=== PATIENT | male | born 1985 | race Caucasian/White ===

== ENCOUNTER 2019-02-03 22:42 | Emergency (ER) | payer SELFPAY ==
[~2019-02-03] VITALS: Ht 180.3 cm; Wt 127.5 kg
--- NOTE | 2019-02-03 22:57 | NUR ---
PT BIBSELF C/O CHEST PAIN, NON-RADIATING. PT SAYS HAVING SOB. PT HAS HX OF ANXIETY. PT AXO4. RESPIRATIONS EVEN AND UNLABORED. PT SPEAKING IN FULL SENTENCES. 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
--- NOTE | 2019-02-03 23:02 | NUR ---
VAIBHAV VASQUEZ AT BEDSIDE.
[2019-02-03] MEDS ORDERED: LORAZEPAM 1 MG TABLET ONE (23:14)
--- NOTE | 2019-02-03 23:15 | NUR ---
EKG AT BEDSIDE.
[2019-02-03 23:23] VITALS: BP 156/91
[2019-02-03] MEDS ORDERED: LORAZEPAM 1 MG TABLET PO ONE (23:30)
--- NOTE | 2019-02-03 23:42 | NUR ---
Patient discharged to home in stable condition. Written and verbal after care instructions given. Patient verbalizes understanding of instruction.
== END 2019-02-03 23:43 | disposition home or self-care (01) ==
LOC: ER 22:56
DX: F41.0 Panic disorder [episodic paroxysmal anxiety] (principal)

== ENCOUNTER 2019-02-22 18:47 | Emergency (ER) | payer SELFPAY ==
[~2019-02-22] VITALS: Ht 180.3 cm; Wt 131.5 kg
--- NOTE | 2019-02-22 19:36 | NUR ---
BIBS FOR C/O GEN BODY ACHES , LOWER ABD AND BILATERAL LOWER BACK PAIN FFOR THE PAST FEW DAYS. - H/A, -N/V, - SOB, -DYSURIA.
[2019-02-22] MEDS ORDERED: ONDANSETRON HCL/PF 4 MG/2 ML VIAL ONE (19:56)
[2019-02-22] MEDS ORDERED: KETOROLAC TROMETHAMINE INJ 30 MG/ML VIAL ONE (19:56)
[2019-02-22] MEDS ORDERED: ONDANSETRON HCL/PF 4 MG/2 ML VIAL IVP ONE (20:00)
[2019-02-22] MEDS ORDERED: IV NS 0.9% 1,000 ML BAG IV ONE (20:00)
[2019-02-22] MEDS ORDERED: KETOROLAC TROMETHAMINE INJ 30 MG/ML VIAL IV ONE (20:00)
[2019-02-22 20:09] LABS: BASOPHILS % (AUTO) 0.4 % (0.0-2.0); EOSINOPHILS % (AUTO) 0.5 % (0.0-6.0); HEMATOCRIT 48 % (39-51); HEMOGLOBIN 16.8 g/dL (13.5-17.5); LYMPHOCYTES % (AUTO) 12.8 % (20.0-44.0); MEAN CORPUSCULAR HGB CONC 35 g/dl (31.0-36.0); MEAN CORPUSCULAR VOLUME 91 fL (80-96); MONOCYTES # (AUTO) 0.3 /CMM (0.1-1.30); MONOCYTES % (AUTO) 4.2 % (2.0-12.0); NEUTROPHILS # (AUTO) 6.2 /CMM (1.8-8.9); NEUTROPHILS % (AUTO) 82.1 % (43.0-81.0); PLATELET COUNT (AUTO) 136 /CMM (150-450); WHITE BLOOD COUNT (AUTO) 7.6 K/uL (4.3-11.0)
[2019-02-22] MEDS ORDERED: ACETAMINOPHEN ES 500 MG TABLET ONE (20:13)
[2019-02-22 20:23] LABS: CREATININE 1.1 mg/dL (0.6-1.3); POTASSIUM 4.2 mmol/L (3.5-5.1)
[2019-02-22 20:24] LABS: APPEARANCE,URINE Clear (CLEAR); BILIRUBIN,URINE Negative (NEGATIVE); BLOOD, URINE Negative Ery/uL (NEGATIVE); COLOR,URINE Yellow (YELLOW); KETONES,URINE Trace (NEGATIVE); LEUKOCYTE ESTERASE ,URINE Negative (NEGATIVE); NITRITE, URINE Negative (NEGATIVE); PROTEIN,URINE Negative (NEGATIVE); UGLUCOSE Negative (NEGATIVE); UROBILINOGEN,URINE 0.2 EU/dL (0.2)
[2019-02-22 20:29] LABS: ALBUMIN 4.3 g/dL (3.4-5.0); BILIRUBIN,DIRECT 0.2 mg/dL (0.0-0.2); BILIRUBIN,TOTAL 0.7 mg/dL (0.2-1.0); TOTAL PROTEIN, SERUM 8.4 g/dL (6.4-8.2)
[2019-02-22] MEDS ORDERED: ACETAMINOPHEN 325 MG TABLET PO ONE (20:30)
[2019-02-22 20:47] LABS: BACTERIA,URINE None seen /HPF (None Seen); RBC,URINE 0-2 /HPF (0-2); SQUAMOUS EPITHELIAL CELL,UR Few /HPF (None Seen); WBC,URINE 0-2 /HPF (0-3)
--- NOTE | 2019-02-22 21:10 | NUR ---
LEFT FOR CT
--- NOTE | 2019-02-22 21:18 | NUR ---
BACK FROM CT
[2019-02-22] MEDS ORDERED: MORPHINE SULFATE INJ 4 MG/ML DISP.SYRIN ONE (21:26)
[2019-02-22] MEDS ORDERED: MORPHINE SULFATE INJ 2 MG/ML DISP.SYRIN IV ONE (21:30)
--- NOTE | 2019-02-22 22:21 | NUR ---
Patient discharged to home in stable condition. Rx and Written and verbal after care instructions given. Patient verbalizes understanding of instruction. pt was picked up by [email or web address] .
[2019-02-22 22:25] VITALS: BP 142/74
== END 2019-02-22 22:25 | disposition home or self-care (01) ==
LOC: ER 18:47
DX: B34.9 Viral infection, unspecified (principal); R42 Dizziness and giddiness; K76.0 Fatty (change of) liver, not elsewhere classified; R63.4 Abnormal weight loss; R53.1 Weakness; R20.0 Anesthesia of skin; F41.9 Anxiety disorder, unspecified
CPT/HCPCS: 36415; 74176; 80048; 80076; 81001; 83605; 83690; 85025; 87040 ×2; 87086; 96361; 96374; 96375; 99284; J1885; J2270; J2405; J7030; 81000-TC